=== PATIENT | female | born 1965 | race Caucasian/White ===

== ENCOUNTER → 2020-11-28 | Outpatient (CLI) | payer OTHER | LOC: MAMO 10-21 14:30 → US 10-21 15:00 → MAMO 10:15 | DX: R92.8 Other abnormal and inconclusive findings on diagnostic imaging of breast (principal) | CPT/HCPCS: 76641-LT; 76641-RT; 77066; G0279 ==

== ENCOUNTER → 2021-06-26 | Outpatient (CLI) | payer OTHER | LOC: MAMO 12:24 | DX: R92.8 Other abnormal and inconclusive findings on diagnostic imaging of breast (principal); N63.12 Unspecified lump in the right breast, upper inner quadrant | CPT/HCPCS: 76641-RT; 77065; G0279 ==

== ENCOUNTER → 2022-06-29 | Outpatient (CLI) | payer MEDICARE | LOC: US 13:53 | DX: R92.8 Other abnormal and inconclusive findings on diagnostic imaging of breast (principal) | CPT/HCPCS: 76641-RT; 77066; G0279 ==

== ENCOUNTER → 2022-07-08 | Outpatient (CLI) | payer MEDICARE | LOC: KOH-I 11:06 | DX: M17.0 Bilateral primary osteoarthritis of knee (principal); M50.90 Cervical disc disorder, unspecified, unspecified cervical region; M47.812 Spondylosis without myelopathy or radiculopathy, cervical region | CPT/HCPCS: 72050; 73564 ==